=== PATIENT | female | born 1935 | race Caucasian/White ===

== ENCOUNTER 2016-12-01 21:57 | Emergency (ER) | payer MEDICARE, OTHER ==
[2016-12-01 22:20] LABS: BASOPHILS 0.4 % (0.0-2.0); EOSINOPHILS 5.7 % (0-7); HEMATOCRIT 42.7 % (36.0-48.0); IMMATURE GRANULOCYTES 0.5 % (0-5); LYMPHOCYTES 23.6 % (15-50); MCH 31.3 pg (26.0-34.0); MCHC 32.8 g/dL (31.0-37.0); MCV 95.5 fL (80.0-100.0); MEAN PLATELET VOLUME 9.6 fL (7.4-10.4); MONOCYTES 8.7 % (2-11); NEUTROPHILS 61.1 % (40-80); PLATELET COUNT 172 10x3/uL (130-400); RBC 4.47 10x6/uL (4.00-5.40); RDW 13.6 % (11.5-14.5); WBC 9.2 10x3/uL (4.8-10.8)
[2016-12-01 22:27] LABS: CALCIUM 10.4 mg/dL (8.5-10.1); CARBON DIOXIDE 28.4 mmol/L (21.0-32.0); CREATININE - SERUM 1.3 mg/dL (0.6-1.3); POTASSIUM - SERUM 4.4 mmol/L (3.5-5.1)
[2016-12-01 22:28] LABS: INR 2.24 (0.85-1.17); PROTIME 24.8 SECONDS (11.6-15.0)
== END 2016-12-01 23:40 | disposition home or self-care (01) ==
LOC: D.ER 21:57
PROVIDERS: Emergency Medicine
DX: R51 Headache (principal); W19.XXXA Unspecified fall, initial encounter; Y93.89 Activity, other specified; Y92.129 Unspecified place in nursing home as the place of occurrence of the external cause; E78.5 Hyperlipidemia, unspecified; I10 Essential (primary) hypertension; C69.90 Malignant neoplasm of unspecified site of unspecified eye

== ENCOUNTER → 2017-04-01 13:35 | Outpatient (CLI) | payer MEDICARE, OTHER | END | disposition home or self-care (01) | LOC: D.MRI 03-29 14:30 | DX: R47.1 Dysarthria and anarthria (principal) ==

== ENCOUNTER → 2017-04-18 13:57 | Outpatient (CLI) | payer MEDICARE, OTHER | END | disposition home or self-care (01) | LOC: D.CT 13:57 | DX: I65.23 Occlusion and stenosis of bilateral carotid arteries (principal) ==

== ENCOUNTER 2017-05-13 09:18 | Inpatient (IN) | payer MEDICARE, OTHER ==
--- NOTE | 2017-05-11 13:04 | HP ---
PATIENT: TETO GARCIA MEDICAL RECORD: [id number] ACCOUNT: [id number] LOCATION:[facility] : 34 ADMISSION DATE: 05/15/17 HISTORY AND PHYSICAL EXAMINATION TETO Pratt (81yo, F) ID# [id number]. Date/Time04/30/2017 01:[id number] Dept.[facility] ClinicProviderEDHAROLDO FERRER MDInsuranceMed Primary: [place] ([place]) Insurance # : [id number] Referring Provider Name : ALEENA JOHNSTON Employer Name : RETIRED Med Secondary: [place]TH - STANDARD () Insurance # : [id number] Referring Provider Name : ALEENA JOHNSTON Employer Name : RETIRED Med : FOR LIFE ( - MEDICARE SUPPLEMENT) Insurance # : [id number] Referring Provider Name : ALEENA JOHNSTON Employer Name : RETIRED Prescription: ESI1 - Member is eligible. Chief Complaint Carotid stenosis CTA at [facility] Patient's Care Team Referring Provider (): ALEENA JOHNSTON: [address] [place] [phone], , Patient's Pharmacies [facility] ([facility]): [address] [place] [phone], , Vitals BP:164/90 sitting L arm 04/30/2017 03:02 pmBP Cuff Size:adult 04/30/2017 03:02 pmHR:64,reg,murmur 04/30/2017 03:03 pmHt:5 ft 6 in 04/30/2017 03:03 pmWt:176 lbs 04/30/2017 03:03 pmNotes:on coumadin, Dr Johnston checks monthly INR.04/30/2017 03:03 pmBMI:28.4 04/30/2017 03:03 pmAllergies Reviewed Allergies NKDAMedications Reviewed Medications acyclovir 800 mg lcrqso93/23/16 filledMEDCOallopurinol 100mg twice daily04/26/17 enteredCindy Brownallopurinol 100 mg egoruk95/27/17 filledMEDCOAmbien 10 mg tablet Take 1 tablet(s) every day by oral route.04/26/17 enteredCindy Brownamoxicillin 500 mg dujvazr65/18/17 filledMEDCOampicillin 500 mg zyjxwyd35/26/17 filledMEDCOfluticasone 50mcg/actuation nasal spray04/26/17 enteredCindy Brownfluticasone 50 mcg/actuation nasal spray,atxtnmpyut21/09/17 filledMEDCOKlor-Con 20 mEq tablet,extended release Take 1 tablet(s) every day by oral route.04/26/17 enteredCindy BrownKlor-Con M20 mEq tablet,extended nuvnqmu04/21/17 filledMEDCOlisinopril 10 mg tablet Take 1 tablet(s) every day by oral route.04/26/17 enteredCindy Brownmetoprolol succinate 50mg daily04/26/17 enteredCindy Brownmetoprolol succinate ER 50 mg tablet,extended release 24 hr04/12/17 filledMEDCOoxybutynin chloride 5 mg mcwdol49/20/17 filledMEDCOpimozide 2 mg yjuuxh01/23/16 filledMEDCOprimidone 50 mg yoqyjl81/18/17 filledMEDCOsimvastatin 20 mg tablet Take 1 tablet(s) every day by oral route.04/26/17 enteredCindy BrownToprol XL 25 mg tablet,extended kdexkpq08/11/16 filledMEDCOVitamin D3 2,000 unit capsule HISTORY AND PHYSICAL [id number] TETO GARCIA Take 2000 unit(s) every day by oral route.04/26/17 enteredCindy Brownwarfarin 5mg daily04/26/17 enteredCindy Brownwarfarin 5 mg ipzhux45/26/17 filledMEDCOProblems Reviewed Problems Left carotid artery stenosis - Onset: 04/30/2017 Carotid artery stenosis - Onset: 04/26/2017 Family History Reviewed Family History Mother- Mental disorderFather- Cerebrovascular accidentSocial History Reviewed Social History Medical Wellness Visit/IPPE Smoking Status: Former smoker Occupation: Retired Marital status: Surgical History Reviewed Surgical History Other - hysterectomy Other - Breast surgery Other - Thyroid surgery Other - Colonoscopy Other - Back surgery 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 HPI Cerebral Vascular Disease Reported by patient. Associated Symptoms: no headache; no nausea; no vomiting; no tinnitus; no difficulty speaking; no lethargy; no fever; no chills; no palpitations; no syncope; no loss of consciousness Notes: hx TIA 25 years ago, then more recently had an episode she thinks is from a medication, but she did have carotid stenosis on doppler and CTA. she had a recent TIA with numbness in her right arm severe left internal carotid artery stenosis Recent TIA with numbness in her right hand are ROS Patient reports exercise intolerance but reports no fever, no night sweats, no significant weight gain, and no significant weight loss. She reports difficulty hearing but reports no ear pain. She reports no jugular vein distension and no HISTORY AND PHYSICAL [id number] TETO GARCIA swollen glands; left carotid bruit. She reports muscle aches, muscle weakness, and arthralgias/joint pain but reports no back pain and no swelling in the extremities. She reports no dry eyes, no irritation, and no vision change. She reports no frequent nosebleeds and no nose/sinus problems. She reports no sore throat, no bleeding gums, no snoring, no dry mouth, no mouth ulcers, no oral a b normalities, and no teeth problems. She reports no chest pain, no arm pain on exertion, no shortness of breath when walking, no shortness of breath when lying down, no palpitations, and no known heart murmur. She reports no cough, no wheezing, no shortnes s of breath, and no coughing up blood. She reports no abdominal pain, no vomiting, normal appetite, no diarrhea, not vomiting blood, no nausea, and no constipation. She reports no incontinence, no difficulty urinating, no hematuria, and no increased freque n cy. She reports no abnormal mole, no jaundice, and no rashes. She reports no loss of consciousness, no weakness, no numbness, no seizures, no dizziness, and no headaches. She reports no depression, no sleep disturbances, feeling safe in relationship, and no alcohol abuse. She reports no fatigue. She reports no swollen glands and no bruising. She reports no runny nose, no sinus pressure, no itching, no hives, and no frequent sneezing. ROS as noted in the HPI Physical Exam Patient is an 81-year-old female. Constitutional: General Appearance healthy-appearing, well developed, and overweight. Level of Distress NAD. Ambulation ambulating normally. Cardiovascular: Apical Impulse not displaced or no thrill. Heart Auscultation normal s1 and s2; no murmurs, rubs, or gallops; and RRR. Arterial Pulses no abdominal aorta bruits, femoral bruits, or popliteal bruits and 2+ bilateral, carotid 2+ bilateral, femoral 2+ bilateral, popliteal 2+ bilateral, and dorsalis pedis 2+ bilateral. Edema no edema or varicosities. Lungs: Repiratory Effort no dyspnea. Percussion no dullness or flatness and hyperresonance . Auscultation no wheezing, rhonchi, or rales / crackles and breathing sounds normal, good air movement, and CTA except as noted. Abdomen: Bowl Sounds normal. Inspection and Palpation no tenderness, guarding, masses, or rebound tenderness and soft and non-distended. Liver non-tender and no hepatomegaly. Spleen non-tender and no splenomegaly. Hernia none palpable. Musculoskeletal System: Gait And Stance wide-based and waddling and normal gait and stance. Digits and Nails normal nails and no cyanosis. Neurologic: Cranial Nerves grossly intact. Reflexes DTRs 2+ bilaterally throughout. Sensation grossly intact. Lymph Nodes: Lymph Nodes no cervical LAD, supraclavicular LAD, axillary LAD, or inguinal LAD. Eyes: Lids and Conjunctivae no discharge or pallor and non-injected. Pupils PERRLA. Cornea grossly intact. EOM EOMI. Lens clear. Sclera non-icteric. Neck: Neck no masses or enlarged lymph nodes and supple, trachea midline, and carotid bruits (left). Thyroid no enlargement or nodules and non-tender. Skin: Inspection and Palpation no rash, lesions, ulcers, jaundice, or abnormal nevi. Assessment / Plan HISTORY AND PHYSICAL [id number] TETO GARCIA severe left internal carotid artery stenosis Symptomatic Ti a with numbness and tingling of right arm and hand She also had difficulty with movement of her fingers on the right hand 1. Left carotid artery stenosis I65.22: Occlusion and stenosis of left carotid artery 2. Carotid artery stenosis I65.29: Occlusion and stenosis of unspecified carotid artery CAROTID STENOSIS: CARE INSTRUCTIONS Discussion Notes the patient has severe symptomatic left internal carotid artery stenosis. I discussed her situation with the Dr. Johnston.I have discussed her disease process with her in detail as well as the alternative methods of treatment. We discussed left carotid endarterectomy including the expected benefits and risks which include bleeding, infection, stroke, loss of limb, and , and the imponderables. Afte r hearing the expected benefits and risks she would like to proceed with left carotid endarterectomy. She will need to be off Coumadin for 3 days and then hospitalized for a heparin bridge to surgery. JO FERRER MD at 1304 CC: [id number] DICTATION DATE: 04/30/17 1330 OCCUPATIONAL HEALTH NURSE MANAGER: GENI 05/10/17 [id number] [place] [address]
[~2017-05-13] VITALS: Ht 165.1 cm; Wt 79.6 kg
[2017-05-13] VITALS (17 sets, daily range): BP systolic 135–171; BP diastolic 35–71; BMI 29.1
--- NOTE | 2017-05-13 09:30 | NUR ---
PT ARRIVED BY WHEELCHAIR. SITTING UP ON SIDE OF BED. ORIENTED TO ROOM. CALL LIGHT WITHIN REACH.
--- NOTE | 2017-05-13 10:20 | NUR ---
20G PIV STARTED IN LEFT FA X1 STICK. PT TOLERATED WELL.
[2017-05-13 10:56] LABS: HEMOGLOBIN 13.3 g/dL (12-16); MCH 31.3 pg (26.0-34.0); MCHC 33.3 g/dL (31.0-37.0); MCV 94.1 fL (80.0-100.0); MEAN PLATELET VOLUME 9.8 fL (7.4-10.4); RBC 4.25 10x6/uL (4.00-5.40); RDW 13.9 % (11.5-14.5); WBC 7.2 10x3/uL (4.8-10.8)
[2017-05-13 11:04] LABS: ALBUMIN 3.6 g/dL (3.4-5.0); ANION GAP 12.3 mmol/L (8-16); BILIRUBIN - TOTAL 0.85 mg/dL (0.2-1.3); CALCIUM 9.7 mg/dL (8.5-10.1); CARBON DIOXIDE 24.7 mmol/L (21.0-32.0); PROTEIN - SERUM 7.1 g/dL (6.4-8.2)
[2017-05-13 11:14] LABS: APTT 30.6 SECONDS (22.8-39.4); INR 1.21 (0.85-1.17); PROTIME 15.2 SECONDS (11.6-15.0)
--- NOTE | 2017-05-13 14:00 | NUR ---
PT ASSISTED INTO RESTROOM. MODERATE AMOUNT OF ASSISTANCE NEEDED FOR AMBULATION. PT REPORTS THAT SHE USES A WALKER AT HOME.
[2017-05-13] MEDS ORDERED: LISINOPRIL10 MG PO (14:08)
[2017-05-13] MEDS ORDERED: AMBIEN10 MG PO ×2 (14:11→14:24)
[2017-05-13] MEDS ORDERED: TOPROL XL50 MG PO (14:23)
[2017-05-13] MEDS ORDERED: ZYLOPRIM100 MG PO ×2 (14:59)
[2017-05-13] MEDS ORDERED: KLOR-CON M2020 MEQ PO (15:00)
[2017-05-13] MEDS ORDERED: ZOCOR20 MG PO (15:01)
[2017-05-13] MEDS ORDERED: VITAMIN D31000 UNIT PO (15:01)
[2017-05-13] MEDS ORDERED: COUMADIN5 MG PO (15:02)
--- NOTE | 2017-05-13 16:10 | NUR ---
PT RESTING COMFORTABLY AT THIS TIME. CALL LIGHT WITHIN REACH.
--- NOTE | 2017-05-13 18:07 | NUR ---
DR. JOHNSTON AT BEDSIDE.
--- NOTE | 2017-05-13 18:11 | NUR ---
ORE DIGGER AT BEDSIDE FOR PTT BLOOD DRAW.
--- NOTE | 2017-05-13 19:40 | NUR ---
REC'D PT RESTING IN BED ON ROOM AIR WATCHING TV, AWAKE, ALERT, AND ORIENTED X 4, LEFT FOREARM PIV WITH HEPARIN @ 1000 UNITS/HR OR 10CC/HR, CM-SR, ANDREY LEON SCDS INTACT AND ON, PT REMARKS THAT "THEY FEEL GOOD I LOVE THEM", PT DENIES PAIN OR NEEDS, PT INSTRUCTED TO CALL FOR ASSISTANCE BEFORE ATTEMPTING TO GET UP TO GO TO BATHROOM, VERBALIZES UNDERSTANDING, SR UP X 2 CALL LIGHT IN REACH.
--- NOTE | 2017-05-13 21:20 | NUR ---
EVENING MEDS GIVEN, PT REQUESTING SOMETHING FOR SLEEP, INFORMED PT KEIIEN WAS ORDERED STATES " I WOULD LIKE TO TAKE IT CLOSER TO 10PM ", NO VISITORS IN AT THIS TIME.
--- NOTE | 2017-05-13 21:45 | NUR ---
PT ASSISTED UP TO BATHROOM TO VOID, PT CHANGED ADULT BRIEF, ASSISTED BACK TO BED, REQEUSTING FLORA FOR SLEEP, PT STATES " I USED TO TAKE 10MG BUT NOW JUST 5MG", 5MG GIVEN REQUESTED AFTER RETURNING TO BED, NO FURTHER NEEDS VOICED.
--- NOTE | 2017-05-13 22:50 | NUR ---
PT REQUESTING SHADE PULLED TO BLOCK OUTSIDE STREET LAMPS, LIGHT ABOVE BED WILL DIM BUT NOT GO COMPLETELY OUT, OPHTHALMIC PATHOLOGIST NOTIFIED OF NEED FOR SLEEP MASK.
--- NOTE | 2017-05-13 23:35 | NUR ---
SLEEP MASK PROVIDED FOR PT, REASSESSMENT COMPLETED, PT REQUESTING 2ND AMBIEN, PROVIDED AT THIS TIME, PT ASSISTED UP TO BATHROOM, VOIDED, 100CC CLEAR YELLOW URINE, ASSISTED BACK TO BED, SR UP X 2, BED IN LOW POSITION, CALL LIGHT IN REACH.
[2017-05-14] VITALS (24 sets, daily range): BP systolic 122–178; BP diastolic 25–78
--- NOTE | 2017-05-14 01:00 | NUR ---
LAB NOTIFIED OF NEED FOR PTT DRAW
--- NOTE | 2017-05-14 01:50 | NUR ---
LAB AT FOR DRAW
--- NOTE | 2017-05-14 02:00 | NUR ---
PT ASSISTED UP TO BATHROOM AND ADULT BRIEF CHANGED, ASSISTED BACK TO BED AND TO REPOSITION FOR COMFORT, PT DENIES PAIN OR OTHER NEEDS, SR UP X 2, CALL LIGHT IN REACH.
--- NOTE | 2017-05-14 03:00 | NUR ---
REASSESSMENT COMPLETED, PT RESTING ON RIGHT SIDE EYES CLOSED, VSS, WILL CONT TO MONITOR FOR CHANGES.
--- NOTE | 2017-05-14 05:00 | NUR ---
NO CHANGES IN STATUS AT THIS TIME.
--- NOTE | 2017-05-14 06:10 | NUR ---
PT ASSISTED ONTO BEDPAN PER REQUEST VOIDED 200 CC CLEAR YELLOW URINE, PERICARE PROVIDED AND PT REPOSITIONED SELF INDEPENDENTLY, PT DENIES FURTHER NEEDS.
--- NOTE | 2017-05-14 07:15 | NUR ---
REPORT RECIEVED FROM FILTER PRESS OPERATOR NURSE. PT RESTING IN BED QUIETLY. NO S/SX OF ACUTE DISTRESS NOTED AT THIS TIME. FULL ASSESSMENT COMPLETE PER FLOWSHEET. REFER FOR DETAILS. WILL CONT TO ASSESS. CALL LIGHT IN REACH.
--- NOTE | 2017-05-14 08:10 | NUR ---
LAB AT BEDSIDE FOR PTT BLOOD DRAW.
[2017-05-14 08:30] LABS: HEMATOCRIT 42.9 % (36.0-48.0); HEMOGLOBIN 14.5 g/dL (12-16); MCH 31.8 pg (26.0-34.0); MCHC 33.8 g/dL (31.0-37.0); MCV 94.1 fL (80.0-100.0); MEAN PLATELET VOLUME 9.7 fL (7.4-10.4); RBC 4.56 10x6/uL (4.00-5.40); RDW 13.9 % (11.5-14.5); WBC 7.1 10x3/uL (4.8-10.8)
[2017-05-14 08:42] LABS: INR 1.17 (0.85-1.17); PROTIME 14.8 SECONDS (11.6-15.0)
[2017-05-14 08:43] LABS: APTT 69.3 SECONDS (22.8-39.4)
[2017-05-14 08:48] LABS: ALBUMIN 3.8 g/dL (3.4-5.0); ANION GAP 15.8 mmol/L (8-16); BILIRUBIN - TOTAL 0.94 mg/dL (0.2-1.3); CALCIUM 9.8 mg/dL (8.5-10.1); CARBON DIOXIDE 25.4 mmol/L (21.0-32.0); CREATININE - SERUM 1.1 mg/dL (0.6-1.3); POTASSIUM - SERUM 4.2 mmol/L (3.5-5.1); PROTEIN - SERUM 7.6 g/dL (6.4-8.2)
--- NOTE | 2017-05-14 09:30 | NUR ---
ASSISTED PT TO BATHROOM. LARGE BM NOTED. PT VOIDED 200CC OF CLEAR. YELLOW URINE. MIN ASSIST REQUIRED.
--- NOTE | 2017-05-14 12:30 | NUR ---
DR. JOHNSTON CALLED AND LEFT VOICEMAIL IN REGARDS TO PT'S HTN. AWAITING CALL BACK.
--- NOTE | 2017-05-14 13:15 | NUR ---
WALKED WITH PT UP AND DOWN LOMAX THREE TIMES. PT USING IV POLE FOR BALANCE. ASSISTED BACK TO BED AFTER WALK. DENIED NEEDS. WILL CONT TO ASSESS.
--- NOTE | 2017-05-14 13:45 | NUR ---
RECIEVED ORDER FOR HYDRALIZINE FROM DR. JOHNSTON.
--- NOTE | 2017-05-14 15:10 | NUR ---
UA OBTAINED AND SENT TO LAB.
--- NOTE | 2017-05-14 15:45 | NUR ---
DAUGHTER IN LAW AT BEDSIDE.
[2017-05-14 16:05] LABS: APPEARANCE CLEAR (CLEAR); BILIRUBIN NEGATIVE (NEGATIVE); COLOR YELLOW (YELLOW); GLUCOSE NEGATIVE (NEGATIVE); KETONE NEGATIVE (NEGATIVE); LEUKOCYTE ESTERASE 1+ (NEGATIVE); NITRITE NEGATIVE (NEGATIVE); PROTEIN NEGATIVE (NEGATIVE); RED CELLS - URINE OCC /hpf (0-5); SPECIFIC GRAVITY 1.015 (1.005-1.020); UROBILINOGEN NORMAL (NORMAL)
[2017-05-14 16:06] LABS: BACTERIA MODERATE /hpf (NONE SEEN); EPITHELIAL CELLS 0-5 /hpf (0-5)
--- NOTE | 2017-05-14 17:00 | NUR ---
ASSISTED BACK TO BED FROM RECLINER. CALL LIGHT AND PERSONAL BELONGINGS PLACED IN REACH.
--- NOTE | 2017-05-14 19:30 | NUR ---
SHIFT ASSESSMENT COMPLETED SEE FLOWSHEET. PT SITTING UPIN CHAIR VISITING WITH DAUGHTER IN LAW. SECURITY CODE WORD ESTABLISHED AND CHARTED. PT NOTED TO BE SLIGHLTLY MORONGO BUT AAOX4. DENIES PAIN. RECEIVING HEPARIN IN 1000U/HR VIA PUMP. IVF AND LINES ARE DATED AND LABELED. LINES TO BE CHANGED 05/17/17. PT IS SCHEDULED FOR SURGERY IN AM. DISCUSSED RESTRICTIONS OF NPO STATUS AT MIDNIGHT. PT VERBALIZES COMPREHENSION. CONSENTS ARE ON THE CHART. PT BEING MONITORED PER STANDARD ICU PROTOCOL AND ALL ALARMS ARE VERIFIED AND CHECKED. QUESTIONS ANSWERED. CALL LIGHT IN REACH. VISITING HOURS AND CONTACT INFORMATION GIVEN TO [id number].
--- NOTE | 2017-05-14 21:10 | NUR ---
PTT REVIEWED AND HEPARIN ADJUSTED PER SLIDING SCALE, RECORDED ON FLOWSHEET. NO VISITORS AT THIS TIME. PT VERY TALKATIVE AND IS SITTING UP IN THE CHAIR.
--- NOTE | 2017-05-14 21:30 | NUR ---
LEFT FA IV LEAKING, D/C'D CATH TIP INTACT. RESITED 20G TO LEFT F/A X 2 ATTEMPTS. PT TOLERATED WELL. HEPARIN RESUMED AT ORDERED DOSE
--- NOTE | 2017-05-14 22:00 | NUR ---
COMPLETE CHLORHEXIDINE BATH GIVEN AND LINENS CHANGED IN PREPARATION FOR SURGERY.
--- NOTE | 2017-05-14 23:00 | NUR ---
SHIFT REASSESSEMENT COMPLETED. NO SIGNIFICANT CHANGES.
[2017-05-15] VITALS (47 sets, daily range): BP systolic 105–163; BP diastolic 39–81; Ht 165.1 cm; Wt 79.6 kg
--- NOTE | 2017-05-15 | NUR ---
FOOD AND WATER REMOVED FROM ROOM AND PT TO NEED TO BE NPO FOR SURGERY
--- NOTE | 2017-05-15 01:00 | NUR ---
PT SLEEPING RESP REG AND NONLABORED
--- NOTE | 2017-05-15 03:00 | NUR ---
SHIFT REASSESSMENT COMPLETED SEE FLOWSHEET. NO SIGNIFICANT CHANGES. HEPARIN TURNED OFF IN ACCORDANCE WITH ORDERS.
--- NOTE | 2017-05-15 05:00 | NUR ---
PT HAS SLEPT WELL TONIGHT CONTINUE TO MONITOR
--- NOTE | 2017-05-15 07:00 | NUR ---
REPORT RECIEVED FROM BRAZER CRAWLER TORCH NURSE. PT RESTING IN BED QUIETLY. NO S/SX OF ACUTE DISTRESS NOTED AT THIS TIME. VSS. FULL ASSESSMENT COMPLETE PER FLOWSHEET. CALL LIGHT IN REACH. BED IN LOW POSITION.
--- NOTE | 2017-05-15 08:15 | NUR ---
CARDIO/NEURO AT BEDSIDE TO PLACE EEG ELECTRODES.
--- NOTE | 2017-05-15 13:22 | NUR ---
Unable to access dc plans/needs at this time - patient in surgery.
--- NOTE | 2017-05-15 15:00 | NUR ---
RECIEVED FROM SURGERY. ATTACHED TO ICU MONITORS. VSS AT THIS TIME. GTT'S PER FLOWSHEET ALONG WITH ASSESSMENT. WILL MONITOR FOR CHANGES.
--- NOTE | 2017-05-15 17:00 | NUR ---
VSS. NO ACUTE CHANGES. WILL CONT TO ASSESS.
--- NOTE | 2017-05-15 19:30 | NUR ---
REPORT RECEIVED AND CARE ASSUMED. SHIFT ASSESSMENT COMPLETED SEE FLOWSHEET. PT IS AAOX4 WITH NONE OF PREVIOUSLY REPORTED CONFUSION. ICE PACK TO LEFT NECK IN PLACE, REFURBISHED. DRESSING TO LEFT NECK CDI AND NECK IS SOFT AND SUPPLE. NEUROCHECKS INTACT. RIGHT RADIAL A-LINE IN PLACE. RIGHT SC CVL IN PLACE. PLACED TODAY DURING SURGICAL PROCESS. ALL IV LINES WERE PLACED TODAY AND ARE LABELED AND DUE TO BE CHANGED 05/18/17. ALL IV FLUIDS ARE CURRENT AND LABELED AND DATED CORRECTELY PT IS BEING MONITORED PER STANDARD ICU PROTOCOL WITH ALL ALARMS SET AND VERIFIED.
--- NOTE | 2017-05-15 20:00 | NUR ---
SON AND [id number] HERE TO SEE PT UPDATE GIVEN. PT VISITED FREELY WITH THEM.
--- NOTE | 2017-05-15 21:00 | NUR ---
HS MEDS GIVEN WITHOUT DIFFICULTY. NO SWALLOWING DIFFICULTY. PT IS TOLERATING CL WELL AND DENIES NAUSEA
--- NOTE | 2017-05-15 23:00 | NUR ---
SHIFT REASSESSMENT COMPLETED. NO SIGNIFICANT CHANGES. PT ABLE TO ASSIST WITH TURNING AND REPOSITIONING. PILLOWS USED FOR SUPPORT AND TO RELIEVE PRESSURE. PT CAUTIONED TO SUPPORT HEAD AND NECK WITH HANDS. TITRATING CLEVIPREX DOWN RECORDED ON IV FLOWSHEET. PT DENIES NEEDS
[2017-05-16] VITALS (55 sets, daily range): BP systolic 105–191; BP diastolic 39–99
--- NOTE | 2017-05-16 01:00 | NUR ---
PT SLEEPING WELL TONIGHT. DENIES PAIN, NO CHANGE IN NEURO STATUS, EASILY AWAKEN AND ORIETATED X 4.
--- NOTE | 2017-05-16 03:00 | NUR ---
SHIFT REASSESSMENT COMPLETED SEE FLOWSHEET. B/P INCREASED OVER ORDERED PERIMETERS CLEVIPREX INCREASED. TITRATIONS RECORDED ON MAR
--- NOTE | 2017-05-16 04:00 | NUR ---
PT AWAKE WATCHING TV. F/C CARE DONE PER PROTOCOL.
--- NOTE | 2017-05-16 05:35 | NUR ---
VENOUS SPECIMEN DRAWN FOR AM LABS SENT FOR ANALYSIS
--- NOTE | 2017-05-16 05:45 | NUR ---
BERTHA BURKETT HERE TO REMOVE LISA DRAIN. DRAIN REMOVED WITHOUT DIFFICULTY. PT TOLERATED WELL. TEGADERM DRESSING APPLIED DATED AND LABELED
[2017-05-16 06:03] LABS: INR 1.16 (0.85-1.17); PROTIME 14.7 SECONDS (11.6-15.0)
--- NOTE | 2017-05-16 08:08 | NUR ---
DAUGHTER IN LAW ESTHER CALLED FOR UPDATE. GIVEN. PT HAS BEEN GIVEN MORNING MEDICATIONS. HAS EATEN BREAKFAST. DENIES PAIN. SAYS HAS NOT SLEPT SINCE 3 AM WHEN SHE WOKE.
--- NOTE | 2017-05-16 09:20 | NUR ---
FAMILY AT BEDSIDE FOR VISITATION
--- NOTE | 2017-05-16 09:58 | NUR ---
Nutrition Follow Up: Chart reviewed. Pt is eating 90% meal avg on a regular diet. +BM 05/14/17. Wt gain since admit noted. Meds and labs reviewed. Rec continue current diet. RD will continue to monitor pt progress.
--- NOTE | 2017-05-16 11:19 | NUR ---
A-LINE AND CHAVIRA CATHETER REMOVED. TIP INTACT ON EACH. RIGHT RADIAL SITE COVERED WITH 2X2 AND TEGADERM. PT USING INCENTIVE SPIROMETER AT THIS TIME
--- NOTE | 2017-05-16 12:00 | NUR ---
PT ASSISTED UP TO TOILET. STIFF UPON EXITING BED. IS NOW UP AT MIRROR IN BATHROOM PERFORMING PERSONAL CARE. CHAIR HAS BEEN SET UP AND TRAY READY FOR LUNCH.
--- NOTE | 2017-05-16 14:19 | NUR ---
PT HAS BEEN UP TO TOILET. LARGE BOWEL MOVEMENT. NOW UP WALKING WITH PHYSICAL THERAPIST.
--- NOTE | 2017-05-16 15:02 | NUR ---
PT RESTING AT THIS TIME. NO DISTRESS NOTED.
--- NOTE | 2017-05-16 17:04 | NUR ---
PT ASSISTED UP TO TOILET. NOW IN CHAIR AT BEDSIDE TO EAT DINNER. DINNER TRAY PROVIDED. PT DENIES ANY OTHER NEEDS. CALL LIGHT IN REACH.
--- NOTE | 2017-05-16 18:03 | NUR ---
PT RESTING IN CHAIR AT BEDSIDE WATCHING TELEVISION. DENIES NEEDS AT THIS TIME. CALL LIGHT IN REACH.
--- NOTE | 2017-05-16 19:40 | NUR ---
SHIFT ASSESSMENT COMPLETED. SEE ASSESSMENT FLOWSHEET. SITTING UP IN BEDSIDE CHAIR. SBP 160'S. PRN HYDRALAZINE GIVEN. LOWER LIP MOVES TO HER RIGHT WITH TALKING. REPORTS IT IS BECAUSE SHE DOES NOT HAVE HER LOWER DENTURES IN. NO OTHER NEURO DEFICITS NOTED. TONGUE PROTRUDES MIDLINE. ORIENTED X4-SPEAKS OF DR. FERRER ETC. PUPILS EQUAL AND REACTIVE BILATERALLY. SCD'S ON AND TIGHT. READJUSTED PLACEMENT. PLASMALYTE INFUSING TO RT SC CVL. WILL MONITOR.
--- NOTE | 2017-05-16 20:40 | NUR ---
ASSISTED FROM BEDSIDE CHAIR TO BATHROOM. CLEAR, YELLOW URINE IN NURSES' HAT-200ML AND AMBULATED TO BED. ALL MONITORING EQUIPMENT PLACED BACK ON.
--- NOTE | 2017-05-16 21:20 | NUR ---
DR. FERRER CALLED AND MADE AWARE OF B/P AFTER PRN HYDRALAZINE GIVEN. NEW ORDERS RECEIVED TO RESTARTED CLEVIPREX GTT TO MAINTAIN SBP <140MMHG.
--- NOTE | 2017-05-16 21:50 | NUR ---
O2 SAT 87% SINCE CLEVIPREX STARTED. NEURO ASSESSMENT COMPLETED. NO CHANGES. INCREASED CELVIPREX TO 5MG/HR. WILL MONITOR.
--- NOTE | 2017-05-16 23:10 | NUR ---
ASSISTED UP TO BATHROOM. INCONTINENT BRIEF CHANGED WITH ASSISTANCE. BRIEF SATURATED. URINATED BUT DID NOT MAKE THE NURSES' HAT. HANDS WASHED AND BACK TO BED. ALL MONITORING EQUIPMENT REPLACED. REASSESSMENT COMPLETED. SEE ASSESSMENT FLOWSHEET. INCREASED CLEVIPREX TO 7MG/HR. WILL MONITOR.
[2017-05-17] VITALS (43 sets, daily range): BP systolic 102–159; BP diastolic 43–94
--- NOTE | 2017-05-17 00:45 | NUR ---
INCREASED CLEVIPREX TO 9MG/HR. WATCHING VOTING ON TELEVISION. WILL MONITOR.
--- NOTE | 2017-05-17 02:28 | NUR ---
CLEVIPREX TURNED OFF. SBP 100.
--- NOTE | 2017-05-17 03:10 | NUR ---
CLEVIPREX TURNED BACK ON TO KEP SBP < 140MMHG.
--- NOTE | 2017-05-17 03:40 | NUR ---
ASSISTED UP TO BATHROOM PER REQUEST-WAS THERMAL INTELLIGENCE ANALYST LIGHT. INDEPENDENTLY PLACED ON NEW INCONTINENT BRIEF DUE TO SOILING. OLD BRIEF SATURATED AND HEAVY. 100ML OF URINE NOTED IN NURSES' HAT. BACK TO BED. REPORTS BEING "HOT" AND WANTING VALENTINA HOSE OFF. ALL DEVICES REMOVED FROM LEGS FOR NOW-AWARE OF POSSIBLE COMPLICATIONS. SOCKS REMOVED ONCE BACK IN BED. TEMP-99.6. REASSESSMENT COMPLETED. SEE ASSESSMENT FLOWSHEET.
--- NOTE | 2017-05-17 05:15 | NUR ---
EYES CLOSED. NO ACUTE DISTRESS NOTED. WILL MONITOR.
--- NOTE | 2017-05-17 06:00 | NUR ---
INCREASED CLEVIPREX TO 4MG/HR. AM LABS DRAWN FROM RT SC CVL. WILL MONITOR.
[2017-05-17 06:31] LABS: ANION GAP 11.9 mmol/L (8-16); CALCIUM 9.4 mg/dL (8.5-10.1); CREATININE - SERUM 1.1 mg/dL (0.6-1.3); POTASSIUM - SERUM 3.9 mmol/L (3.5-5.1)
[2017-05-17 06:46] LABS: INR 1.23 (0.85-1.17); PROTIME 15.4 SECONDS (11.6-15.0)
[2017-05-17 07:10] LABS: BASOPHILS 0.1 % (0-2); EOSINOPHILS 5.4 % (0-7); HEMATOCRIT 38.2 % (36.0-48.0); HEMOGLOBIN 12.4 g/dL (12-16); IMMATURE GRANULOCYTES 0.3 % (0-5); LYMPHOCYTES 17.9 % (15-50); MCH 30.8 pg (26.0-34.0); MCHC 32.5 g/dL (31.0-37.0); MEAN PLATELET VOLUME 9.9 fL (7.4-10.4); MONOCYTES 10.9 % (2-11); NEUTROPHILS 65.4 % (40-80); PLATELET COUNT 149 10x3/uL (130-400); RBC 4.02 10x6/uL (4.00-5.40); RDW 14.4 % (11.5-14.5); WBC 7.7 10x3/uL (4.8-10.8)
--- NOTE | 2017-05-17 07:10 | NUR ---
PT SLEEPING AT THIS TIME. NO DISTRESS NOTED. CURRENT BP 133/54, HR 82, O2 SAT 93%. DRESSING AT LEFT NECK CLEAN DRY AND INTACT.
--- NOTE | 2017-05-17 08:00 | NUR ---
PT HAS BEEN ASSISTED UP TO TOILET. PERSONAL CARE PERFORMED. PT NOW UP IN CHAIR AT BEDSIDE FOR BREAKFAST. DENIES ANY OTHER NEEDS AT THIS TIME.
[2017-05-17] MEDS ORDERED: ASPIRIN81 MG PO (08:14)
--- NOTE | 2017-05-17 09:32 | NUR ---
* Is the patient Alert and Oriented? Yes 0 * How many steps to enter\exit or inside your home? 0 0 * PCP Dr. Wagner 0 * Pharmacy [facility] 0 * Preadmission Environment Other 0 * Other Environment Independent Living 0 * Facility Name [facility] 0 * ADLs Independent 0 * Equipment Rolling Walker 0 * Additional services required to return to the preadmission environment? No 0 * Can the patient safely return to the preadmission environment? Yes 0 * Has this patient been hospitalized within the prior 30 days at any hospital? No Patient Name: TETO GARCIA Admission Status: Elective Accout number: [id number] Admission Date: 05-13-2017 : 1935 Admission Diagnosis:OCCLUSION AND STENOSIS OF LEFT CAROTID ARTERY Attending: BRANDAN Current LOS: 4 Anticipated DC Date: 05-17-2017 Planned Disposition: Home Primary Insurance: MEDICARE A & B Discharge Planning Comments: CM met with patient to assess dc plans/needs. Patient states she lives alone at [facility] in a one bedroom apartment. She reports she is independent with all ADL's & IADL's but does use a rolling walker when she goes down to the dining room. Denies having home health services - states she does not need them at discharge. Anticipate DC later this afternoon or tomorrow if BP stable. CM will follow. Vending Machine Collector: Lory Santana
--- NOTE | 2017-05-17 10:00 | NUR ---
DR JOHNSOTN HAS BEEN BY TO SEE PATIENT. ASKED THAT AMBIEN BE DISCONTINUED UPON DISCHARGE. IS OK TO RESTART LISINOPRIL AT DISCHARGE IF DR FERRER OK WITH IT.
--- NOTE | 2017-05-17 10:48 | NUR ---
PT UP WALKING WITH PHYSICAL THERAPY. NO DISTRESS NOTED.
--- NOTE | 2017-05-17 11:17 | NUR ---
DR CHAND OFFICE CALLED TO SET UP F/U APPOINTMENT. IS May AT 1:45
--- NOTE | 2017-05-17 13:00 | NUR ---
FAMILY CALLED AND NOTIFIED OF DISCHARGE. PT ASKED TO HAVE THEM STOP AND GET SOME BABY ASPIRIN BEFORE PICKING HER UP. DISCHARGE INSTRUCTIONS/TEACHING PROVIDED. FOLLOW UP APPOINTMENTS HIGHLITED. NABIL 05/30 AT 10:30, VICKIE MEAD 05/28 AT 1:45 RIGHT SUBCLAVIAN CENTRAL LINE REMOVED, TIP INTACT. PT ASSISTED TO BATHROOM TO GET DRESSED.
--- NOTE | 2017-05-18 11:34 | OP ---
PATIENT NAME: TETO GARCIA MEDICAL RECORD: [id number] :33 LOCATION:[id number] ADMISSION DATE:05/13/17 SURGEON: MANISH FERRER MD DATE OF OPERATION: 05/15/2017 SURGEON: Manish Ferrer M.D. ANESTHESIA: General endotracheal, Dr. Joseph. OPERATION PERFORMED: Left carotid endarterectomy with patch angioplasty. PREOPERATIVE DIAGNOSIS: Severe left internal carotid artery stenosis. POSTOPERATIVE DIAGNOSIS: Severe left internal carotid artery stenosis. INDICATION FOR OPERATION: Severe symptomatic left internal carotid artery stenosis. FINDINGS AT OPERATION: There were no EEG changes with clamping or unclamping of the carotid artery. FINDINGS OF THE OPERATION: The left internal carotid artery was severely and diffusely diseased. The plaque had areas of rupture with ulceration, as well as stenosis. ESTIMATED BLOOD LOSS: Less than 100 mL. DESCRIPTION OF PROCEDURE: After informed consent, adequate preoperative medication, and evaluation, the patient was brought to the operating room, placed on the table in the supine position. After induction of general endotracheal anesthesia and application of appropriate monitoring devices, the chest and neck were prepped in a sterile field, utilizing Betadine scrub, alcohol, and Betadine solution. A Betadine-impregnated drape was also used. An oblique incision was made in the skin crease. Dissection carried down the fascia. Hemostasis maintained with electrocautery. Facial vein was identified and divided. Utilizing sharp dissection, the common carotid, internal and external carotid arteries were dissected free from surrounding structures, protecting the neurological structures. The patient was given a calculated dose of heparin, after 3 minutes clamps were applied. After 2 minutes, no EEG changes. The arteriotomy was made and extended with Nova scissors. Artery underwent endarterectomy sharply. Artery underwent extensive debridement and irrigation. Utilizing a vascular patch, a running 7-0 Prolene suture, the arteriotomy was closed with patch angioplasty technique. All maneuvers to remove trapped air were performed. The clamps were removed sequentially. There were no EEG changes. The patient was given a calculated dose of protamine to reverse the heparin. Hemostasis was achieved, and a #7 Kavin-Ma drain was left in the depth of wound and brought through the base of the neck. Neck was again irrigated. Instrument count and sponge count were correct times 2. Neck was closed in layers utilizing 3-0 Vicryl on the platysma, 5-0 subcuticular Monocryl on the skin. Sterile dressings were applied. The patient tolerated the procedure well and was transferred back to the [facility] ICU in satisfactory condition. TRANSINT:[id number] Voice Confirmation ID: [id number] DOCUMENT ID: [id number] OPERATIVE REPORT [id number] TETO GARCIA EDWARD MD at 1134 CC: [id number] DICTATION DATE: 05/15/171420 SUPERVISOR DIAGNOSTIC: 05/15/17 2314 DIS IN 05/17/17 [facility] [address] [place] [address]
== END 2017-05-17 13:37 | disposition home or self-care (01) | DRG 39 ==
LOC: D.CVICU 09:18 → D.SDCHOLD 05-15 07:30 → D.CVICU 05-17 13:37
PROVIDERS: Family Medicine; ADMIT Internal Medicine Cardiovascular Disease
PROC: 03UL0JZ Supplement Left Internal Carotid Artery with Synthetic Substitute, Open Approach (ICD-10-PCS; 2017-05-15)
PROC: 03CL0ZZ Extirpation of Matter from Left Internal Carotid Artery, Open Approach (ICD-10-PCS; principal; 2017-05-15 12:00)
DX: I65.22 Occlusion and stenosis of left carotid artery (principal); I10 Essential (primary) hypertension; E78.5 Hyperlipidemia, unspecified; Z86.718 Personal history of other venous thrombosis and embolism

== ENCOUNTER → 2018-08-12 13:24 | Outpatient (CLI) | payer MEDICARE, OTHER ==
[2017-05-15 14:06] VITALS: BMI 29.8
[~2018-08-12 13:24] MED LIST: AMBIEN10 MG PO; ASPIRIN81 MG PO; COUMADIN5 MG PO; KLOR-CON M2020 MEQ PO; LISINOPRIL10 MG PO; TOPROL XL50 MG PO; VITAMIN D31000 UNIT PO; ZOCOR20 MG PO; ZYLOPRIM100 MG PO
== END | disposition home or self-care (01) ==
LOC: D.US 13:24
DX: I65.23 Occlusion and stenosis of bilateral carotid arteries (principal)

== ENCOUNTER → 2019-08-12 11:02 | Outpatient (CLI) | payer MEDICARE, OTHER ==
[2017-05-15 14:06] VITALS: BMI 29.8
== END | disposition home or self-care (01) ==
LOC: D.US 08-11 13:30
PROVIDERS: ATTEND Internal Medicine Cardiovascular Disease
DX: I65.23 Occlusion and stenosis of bilateral carotid arteries (principal)